=== PATIENT | female | born 1985 | race Caucasian/White ===

== ENCOUNTER 2016-05-26 06:32 | Inpatient (IN) | payer OTHER ==
--- NOTE | ~2016-05-26 | PN ---
Unit #: [id number] #: [id number] Patient: YAMILETH LESLIE [id number] [facility] [address] [place] [address] [id number] I MR#: [id number] NAME: YAMILETH LESLIE ROOM: P179 Age: 30 Sex: F Admission Date: 05/26/2016 : 1985 Attending Physician: Franki Townsend M.D. Admitting Physician: Franki Townsend M.D. Primary Care Physician: Generic Doctor Not In System [facility] PROGRESS NOTES DATE OF SERVICE: 05/27/2016 SUBJECTIVE Ms. Leslie is a 30-year-old white female with substance abuse and mood disorder, who was seen today and chart was reviewed, and case was discussed with the staff. She has been anxious, withdrawn, and rather seclusive to herself and appears to be in distress and discomfort and was not really able to carry on much conversation. Meanwhile, she has been taking medications and tolerating them fairly well with no reported side effects. MENTAL STATUS EXAMINATION Young white female who was casually dressed with fair personal hygiene, appears to be in slight distress or discomfort. She was awake and alert on interaction with intact orientation. Her mood was anxious with a congruent affect. She denies any suicidal or homicidal ideations. Her insight and judgment remain slightly impaired. TREATMENT PLAN 1. We will continue on her current medications and treatment protocol. We will monitor her response and make further adjustments as needed. 2. We will continue to follow up. Dictated by... Tiarra Gunn/florian TD: 05/28/2016 04:38 JOB #: [id number] [facility] PROGRESS NOTES X Franki Townsend MD PROGRESS NOTE
--- NOTE | ~2016-05-26 | PN ---
Unit #: [id number] #: [id number] Patient: YAMILETH LESLIE [id number] [facility] [address] [place] [address] [id number] I MR#: [id number] NAME: YAMILETH LESLIE ROOM: P179 Age: 30 Sex: F Admission Date: 05/26/2016 : 1985 Attending Physician: Franki Townsend M.D. Admitting Physician: Franki Townsend M.D. Primary Care Physician: Generic Doctor Not In System [facility] PROGRESS NOTES DATE OF SERVICE: 06/01/2016 SUBJECTIVE Ms. Ascencio is a 30-year-old white female with substance abuse and mood disorder, who was seen today and chart was reviewed, and the case was discussed with the staff. She had remained anxious, withdrawn, depressed and rather seclusive to herself. Meanwhile, she has been cooperative with the treatment recommendations and has been taking the medications and tolerating them fairly well with no reported side effects. MENTAL STATUS EXAMINATION Young white female, who was casually dressed with fair personal hygiene and appears to be in no acute distress or discomfort. She was awake and alert with intact orientation. Her mood was anxious with a congruent affect. She denies any suicidal or homicidal ideations. Her insight and judgment remain slightly impaired. TREATMENT PLAN We will continue her on her current treatment protocol. We will monitor her response and make further adjustments as needed. Dictated by... Tiarra Gunn/florian TD: 06/02/2016 00:42 JOB #: [id number] [facility] PROGRESS NOTES X Franki Townsend MD PROGRESS NOTE
--- NOTE | ~2016-05-26 | PN ---
Unit #: [id number] #: [id number] Patient: YAMILETH LESLIE [id number] [facility] [address] [place] [address] [id number] I MR#: [id number] NAME: YAMILETH LESLIE ROOM: P179 Age: 30 Sex: F Admission Date: 05/26/2016 : 1985 Attending Physician: Franki Townsend M.D. Admitting Physician: Franki Townsend M.D. Primary Care Physician: Generic Doctor Not In System [facility] PROGRESS NOTES DATE OF SERVICE: 06/02/2016 SUBJECTIVE The patient is a 30-year-old white female, who was seen today and chart was reviewed, and case was discussed with the staff. She has been anxious, withdrawn, though has not shown any agitation or irritability, and had been cooperative with treatment recommendations. Once again, she was seen to be rather seclusive to herself. Meanwhile, she has been taking the medications and tolerating them fairly well with no reported side effects. MENTAL STATUS EXAMINATION Young white female, who was casually dressed with fair personal hygiene, appears to be in no acute distress or discomfort. She was awake and alert on interaction with intact orientation. Her mood was anxious with a congruent affect. Her speech was slow and goal directed. She denies any suicidal or homicidal ideations, and also denies any auditory or visual hallucinations. Her insight and judgment remain slightly impaired. TREATMENT PLAN 1. We will continue her on her current medications and treatment protocol. We will monitor her response to the medications and make further adjustments as needed. 2. We will continue to follow up. Dictated by... Tiarra Gunn/florian TD: 06/04/2016 04:21 JOB #: [id number] Unit #: [id number] #: [id number] Patient: YAMILETH LESLIE [facility] PROGRESS NOTES X Franki Townsend MD PROGRESS NOTE
--- NOTE | ~2016-05-26 | PN ---
Unit #: [id number] #: [id number] Patient: YAMILETH LESLIE [id number] [facility] [address] [place] [address] [id number] I MR#: [id number] NAME: YAMILETH LESLIE ROOM: P179 Age: 30 Sex: F Admission Date: 05/26/2016 : 1985 Attending Physician: Franki Townsend M.D. Admitting Physician: Franki Townsend M.D. Primary Care Physician: Generic Doctor Not In System [facility] PROGRESS NOTES DATE 05/31/2016 DISCUSSION Ms. Leslie is a 30-year-old white female who was seen today and chart was reviewed and case was discussed with the staff. She has been anxious, withdrawn, depressed and seclusive to herself and reports not feeling good and has been describing feelings of hopelessness and helplessness and reports social support system outside. Meanwhile, she has been taking medications and tolerating them fairly well with no reported side effects. MENTAL STATUS EXAMINATION Young white female who was casually dressed with fair personal hygiene and appears to be in no acute distress or discomfort. She was awake and alert on interaction with intact orientation. Her mood was anxious and depressed with congruent affect. She reports suicidal ideation but denies any homicidal ideations. Her insight and judgement remains slightly impaired. TREATMENT PLAN 1. Will continue on current medications and treatment protocol and will monitor her response to the medications and make adjustments as needed. 2. Will continue to follow up. Dictated by... Tiarra Gunn/atiya TD: 06/01/2016 15:20 JOB #: [id number] Unit #: [id number] #: [id number] Patient: YAMILETH LESLIE [facility] PROGRESS NOTES X Franki Townsend MD PROGRESS NOTE
--- NOTE | ~2016-05-26 | PA ---
Unit #: [id number] #: [id number] Patient: Y[facility]ILE[facility] LESLIE [id number] [facility] [address] [place] [address] [id number] I MR#: [id number] NAME: YAMILETH LESLIE ROOM: P179 Age: 30 Sex: F Admission Date: 05/26/2016 : 1985 Date of Assessment: 05/26/2016 Attending Physician: Franki Townsend M.D. Admitting Physician: Franki Townsend M.D. Primary Care Physician: Generic Doctor Not In System PSYCHIATRIC ASSESSMENT DATE OF SERVICE 05/26/2016. IDENTIFYING DATA Ms. Tidwell is a 30-year-old single white female, who is a resident of [place], [place], and was referred to us from [facility]. CHIEF COMPLAINT "I'm very depressed." HISTORY OF PRESENT ILLNESS Ms. Tidwell is a 30-year-old white female, who was transferred to us from [facility], where she was brought in reporting increasing depression. On initial presentation, she was covered with a blanket pulled up to her chin in the position and was slow to respond and stated "I'm very depressed." When asked about what, she replied "everything, I want to ." She stated that she does not know why, but that she is very depressed and is homeless and that she is from [place], [place], and she does not have any family there and she stated that her mother has given them up and that she has siblings, but she does not have any specific support system and does report feelings of hopelessness and helplessness, poor support system, psychomotor retardation, and suicidal ideations and as such, a recommendation for inpatient level of care was made. SUBSTANCE ABUSE HISTORY The patient reports history of experimentation with alcohol, cocaine, and amphetamine in the past. She reports that she has not used any drugs at this time. PAST PSYCHIATRIC HISTORY The patient has had a history of inpatient psychiatric and chemical dependency treatment at [facility], and review of the medical records indicate that currently she is not active in any treatment program. PAST MEDICAL HISTORY No acute or chronic medical illnesses. PERSONAL AND SOCIAL HISTORY A 30-year-old white female, who reports that she is single, unemployed, and is homeless and has poor social support system. Unit #: [id number] #: [id number] Patient: YAMILETH LESLIE MENTAL STATUS EXAMINATION Young white female, who was casually dressed with fair personal hygiene, appears to be in no acute distress or discomfort. She was awake and alert on interaction with intact orientation. Her mood was anxious and depressed with a congruent affect. Her speech was slow and goal directed. She reports having suicidal ideation, but denies any homicidal ideations and also denies any auditory or visual hallucinations. Her insight and judgment remain slightly impaired. DIAGNOSTIC IMPRESSION Psychiatric: Major depressive disorder, recurrent, moderate, without psychotic features. Medical: None. Stressors: Moderate psychosocial stressors. TREATMENT PLAN 1. The patient has presented with a history of mood disorder and has been decompensating and will need inpatient hospitalization for safety and stabilization. We will start her back on her home medications and we will adjust the medications and monitor response. 2. Supportive therapy was provided to the patient. ESTIMATED LENGTH OF STAY 5 to 7 days. ABILITY TO HELP SELF Limited. WILLINGNESS TO HELP SELF The patient appears to be willing to help self. STRENGTHS 1. Communicative. 2. Cooperative. PROBLEMS 1. Chronic dysphoric symptoms. 2. Poor social support system. DISCHARGE CRITERIA This will be contingent upon the patient's ability to show resolution of her depression and anxiety and her ability to stay safe to herself, particularly after discharge from the hospital. Dictated by... Tiarra Gunn/florian TD: 05/26/2016 10:09 JOB #: [id number] Unit #: [id number] #: [id number] Patient: YAMILETH LESLIE RUI PSYCHIATRIC ASSESSMENT X Franki Townsend MD X PSYCHIATRIC ASSESSMENT
--- NOTE | ~2016-05-26 | PN ---
Unit #: [id number] #: [id number] Patient: YAMILETH LESLIE [id number] [facility] [address] [place] [address] [id number] I MR#: [id number] NAME: YAMILETH LESLIE ROOM: P179 Age: 30 Sex: F Admission Date: 05/26/2016 : 1985 Attending Physician: Franki Townsend M.D. Admitting Physician: Franki Townsend M.D. Primary Care Physician: Generic Doctor Not In System [facility] PROGRESS NOTES DATE OF SERVICE 05/28/2016 DISCUSSION Ms. Leslie is a 30-year-old white female with mood disorder and substance abuse who was seen today. Chart was reviewed and case was discussed with the staff. She has been anxious, withdrawn, depressed, and rather cooperative with treatment recommendations, and informed me that she is due for her Abilify, maintained on long-acting injectable antipsychotic. She was getting filled in [place] and does not know where she is registered or scheduled to receive her next injection. MENTAL STATUS EXAMINATION Young white female who is casually dressed with fair personal hygiene, appears to be in no acute distress or discomfort. The patient was awake and alert on interaction with intact orientation. Her mood is anxious and depressed with congruent affect. Her speech is slow and goal-directed. She denies any suicidal or homicidal ideations and also denies any auditory or visual hallucinations. Her insight and judgment remain slightly impaired. TREATMENT PLAN 1. We will continue her on her current medications and treatment protocol. We will monitor her response to the medications and make further adjustments as needed. 2. We will continue to follow up. Dictated by... Tiarra Gunn/jason TD: 05/29/2016 09:41 JOB #: [id number] Unit #: [id number] #: [id number] Patient: YAMILETH LESLIE PROGRESS NOTES X Franki Townsend MD PROGRESS NOTE
--- NOTE | ~2016-05-26 | HP ---
Unit #: [id number] #: [id number] Patient: YAMILETH ELSLIE [id number] [place] [address] [id number] I MR#: [id number] NAME: YAMILETH LESLIE ROOM: P179 Age: 30 Sex: F Admission Date: 05/26/2016 : 1985 Attending Physician: Franki Townsend M.D. Admitting Physician: Franki Townsend M.D. Primary Care Physician: Generic Doctor Not In System HISTORY AND PHYSICAL HISTORY OF PRESENT ILLNESS The patient is a 30-year-old female admitted to [facility] on 05/26/2016 for suicidal ideations and auditory hallucinations. PAST MEDICAL HISTORY [place]'s disease PAST SURGICAL HISTORY section SOCIAL HISTORY The patient is unemployed and homeless. She denies alcohol, tobacco and drug use. However, her tox screen was positive for cocaine and methamphetamines. FAMILY MEDICAL HISTORY Noncontributory. ALLERGIES No known drug allergies. CURRENT MEDICATIONS The patient is not on any home medications. REVIEW OF SYSTEMS CONSTITUTIONAL: No fever or chills. HEENT: Denies any sore throat, ear pain or runny nose. CARDIOVASCULAR: Denies chest pain, irregular heart rhythm or palpitations. CHEST: Denies shortness of breath or cough. No hemoptysis. GASTROINTESTINAL: Denies nausea, vomiting, diarrhea or chronic constipation. ENDOCRINE: Denies history of increased thirst or urination. No recent significant weight loss or gain. GENITOURINARY: Denies dysuria, frequency, or hematuria. SKIN: Denies any rashes. HEMATOLOGIC: Denies history of increased bleeding or bruising. MUSCULOSKELETAL: Denies any hot, swollen joints. No generalized muscle pain. NEUROLOGIC: Denies problems with vision or speech. No frequent, severe headaches. No numbness, tingling or weakness in any extremities. Denies loss of bladder or bowel control. PHYSICAL EXAM Unit #: [id number] #: [id number] Patient: YAMILETH LESLIE GENERAL: She is awake, alert and oriented in no acute distress. VITAL SIGNS: Temperature 98.4, heart rate 92, respiration 16, blood pressure 155/64. HEIGHT: 5'2". WEIGHT: 140 pounds. SKIN: Warm and dry without rash or lesion. HEENT: Normocephalic. TMs not viewed. Oral and nasal passages clear. Conjunctivae clear. PERRLA. EOMs intact. NECK: Supple without lymphadenopathy or thyromegaly. HEART: Regular rate and rhythm without murmur. LUNGS: Clear. ABDOMEN: Soft, nontender. : Not done. EXTREMITIES: No evidence of cyanosis, clubbing or edema. Moves all without focal deficit. NEUROLOGICAL: Grossly within normal limits. Cranial Nerves: II: Visual leone are intact. III, IV AND : Extraocular movements are intact. Pupils are equal, round and reactive to light. V: Facial sensation is grossly normal. VII: Facial movements and expression are normal. VIII: Auditory acuity grossly intact. IX, X: Uvula is midline. Phonation is normal. XI: Patient shrugs shoulders and turns head normally. XII: Tongue protrudes in the midline. Sensory and Motor Function: Sensory and motor sensation is grossly normal. Motor: moves all extremities well. IMPRESSION 1. Psychiatric admission. 2. [place]'s disease. RECOMMENDATIONS Psychiatric per psychiatrist. MEDICAL: No contraindication to participate in facility activities. MEDICAL PROGNOSIS Fair. MEDICAL CONDITION Stable. Dictated by... Fatmata Loera/ayse TD: 05/27/2016 03:49 JOB #: [id number] Unit #: [id number] #: [id number] Patient: YAMILETH LESLIE HISTORY AND PHYSICAL X BIANCA SIMS APRN X HISTORY AND PHYSICAL
--- NOTE | ~2016-05-26 | PN ---
Unit #: [id number] #: [id number] Patient: YAMILETH LESLIE [id number] [facility] [address] [place] [address] [id number] I MR#: [id number] NAME: YAMILETH LESLIE ROOM: P179 Age: 30 Sex: F Admission Date: 05/26/2016 : 1985 Attending Physician: Franki Townsend M.D. Admitting Physician: Franki Townsend M.D. Primary Care Physician: Generic Doctor Not In System [facility] PROGRESS NOTES DATE 05/30/2016 DISCUSSION Ms. Leslie is a 30-year-old white female with mood disorder who was seen today and chart was reviewed and case was discussed with the staff. She has been anxious, withdrawn, depressed and rather seclusive to herself and reports not feeling good and stated that she does not feel her medications are not working for her and reports increasing depressive symptoms. Meanwhile, she has been taking medications and tolerating them fairly well with no reported side effects. MENTAL STATUS EXAMINATION Young white female who was casually dressed with fair personal hygiene, appears to be in no acute distress or discomfort. She was awake and alert on interaction with intact orientation. Her mood was anxious and depressed with congruent affect. Her speech was slow and goal-directed. She reports having suicidal ideation but denies any homicidal ideations. Also, denies any auditory or visual hallucinations. Her insight and judgement remains slightly impaired. TREATMENT PLAN 1. We will continue her on her current medications and treatment protocol. We will monitor her response to the medications and make further adjustments as needed. 2. We will continue to follow up. Dictated by... Tiarra Gunn/ayse TD: 05/31/2016 01:58 JOB #: [id number] Unit #: [id number] #: [id number] Patient: YAMILETH LESLIE PROGRESS NOTES X Franki Townsend MD PROGRESS NOTE
--- NOTE | ~2016-05-26 | PN ---
Unit #: [id number] #: [id number] Patient: YAMILETH LESLIE [id number] [facility] [address] [place] [address] [id number] I MR#: [id number] NAME: YAMILETH LESLIE ROOM: P179 Age: 30 Sex: F Admission Date: 05/26/2016 : 1985 Attending Physician: Franki Townsend M.D. Admitting Physician: Franki Townsend M.D. Primary Care Physician: Generic Doctor Not In System [facility] PROGRESS NOTES DATE OF SERVICE: 05/29/2016 SUBJECTIVE Ms. Ascencio is a 30-year-old white female, who was seen today and chart was reviewed and the case was discussed with the staff. She has been anxious, withdrawn, and rather seclusive to herself. Meanwhile, she has been cooperative with the treatment recommendations and has been taking the medications and tolerating them fairly well. MENTAL STATUS EXAMINATION Young white female, who was casually dressed with fair personal hygiene and appears to be in no acute distress or discomfort. She was awake and alert on interaction with intact orientation. Her mood was anxious with a congruent affect. She denies any suicidal or homicidal ideations and also denies auditory or visual hallucinations. Her insight and judgment remain slightly impaired. TREATMENT PLAN 1. We will continue her on her current medications and treatment protocol. We will monitor her response to the medications and make further adjustments as needed. 2. We will continue to follow up. Dictated by... Tiarra Gunn/florian TD: 05/29/2016 09:01 JOB #: [id number] [facility] PROGRESS NOTES X Franki Twonsend MD PROGRESS NOTE
--- NOTE | ~2016-05-26 | DS ---
Unit #: [id number] #: [id number] Patient: YAMILETH LESLIE [id number] [facility] [address] [place] [address] [id number] I MR#: [id number] NAME: YAMILETH LESLIE ROOM: P179 Age: 30 Sex: F Admission Date: 05/26/2016 : 1985 Discharge Date: 06/03/2016 Attending Physician: Franki Townsend M.D. Primary Care Physician: Generic Doctor Not In System DISCHARGE SUMMARY IDENTIFYING DATA Ms. Leslie is a 30-year-old single white female, who is a resident of [place], [place] and was referred to us from [place], [place]. DISCHARGE DIAGNOSES Psychiatric: Major depressive disorder, recurrent, moderate, without psychotic features; alcohol abuse, moderate; cocaine abuse, moderate; amphetamine abuse, moderate. Medical: None. Stressors: Moderate psychosocial stressors. HISTORY OF PRESENT ILLNESS Please see initial psychiatric evaluation for details. PAST PSYCHIATRIC HISTORY Please see initial psychiatric evaluation for details. PAST MEDICAL HISTORY Please see initial psychiatric evaluation for details. HOSPITAL COURSE The patient [facility] and was oriented to the hospital environment. Routine p.r.n. medications were initiated, and she was started back on her home medications and medications were adjusted and she was closely monitored. She was taking the medications regularly and was tolerating them fairly well and was able to show a decent and therapeutic response and as such, it was decided that she will be discharged home and will continue treatment on an outpatient basis. DISCHARGE MEDICATIONS Lexapro 20 mg in the morning for depression, Zyprexa 2.5 mg at bedtime for depression, and Lamictal 50 mg at bedtime for depression. DISCHARGE CONDITION Stable. PROGNOSIS Fair. Dictated by... Franki Townsend M.D. Unit #: [id number] #: [id number] Patient: YAMILETH LESLIE IAA/modl TD: 06/03/2016 06:44 JOB #: [id number] DISCHARGE SUMMARY X Franki Townsend MD DISCHARGE SUMMARY
[~2016-05-26 06:32] MED LIST: DEPAKOTE PO; RISPERDAL1 M1 PO
[2016-05-27 13:10] LABS: ALBUMIN SERUM 3.5 g/dL (3.5-5.0); ALKALINE PHOSPHATASE 53 U/L (32-92); ALT (SGPT) 17 U/L (10-40); AST (SGOT) 16 U/L (10-42); BILIRUBIN,TOTAL 0.4 mg/dL (0.2-2.0); BLOOD UREA NITROGEN 14 mg/dL (9-23); CARBON DIOXIDE 27 mmol/L (22-31); CHLORIDE 109 mmol/L (100-111); GLOM FILT RATE Estimated ABOVE60 mL/min (>60); GLUCOSE FASTING 90 mg/dL (70-110); POTASSIUM 4.1 mmol/L (3.5-5.1); PROTEIN TOTAL SERUM 6.7 g/dL (6.0-8.3); SODIUM 144 mmol/L (135-145)
[2016-05-27 13:11] LABS: THYROID STIMULATING HORMONE 0.39 uIU/ml (0.34-5.60)
[2016-05-27 13:18] LABS: FREE THYROXIN (T4) 0.92 ng/dL (0.58-1.64)
[2016-05-28 09:59] LABS: URINE APPEARANCE TURBID; URINE BILIRUBIN NEG (NEG); URINE BLOOD NEG (NEG); URINE COLOR YELLOW; URINE GLUCOSE NEG (NEG); URINE KETONE NEG (NEG); URINE LEUKOCYTE ESTERASE NEG (NEG); URINE NITRATE NEG (NEG); URINE PH 5.5 (5-8); URINE PROTEIN NEG (NEG); URINE SPECIFIC GRAVITY 1.024 (1.003-1.035); URINE UROBILINOGEN 0.2 MG/DL (NEG)
== END 2016-06-03 11:55 | disposition home or self-care (01) | DRG 885 ==
LOC: P1E 06:32
PROVIDERS: Psychiatry & Neurology Psychiatry
DX: F33.1 Major depressive disorder, recurrent, moderate (principal); G10 Huntington's disease; Z56.0 Unemployment, unspecified; Z59.0 Homelessness; F14.10 Cocaine abuse, uncomplicated; F15.10 Other stimulant abuse, uncomplicated
CPT/HCPCS: 80053; 81003; 84439; 84443

== ENCOUNTER 2016-06-10 19:11 | Inpatient (IN) | payer OTHER ==
--- NOTE | ~2016-06-10 | PN ---
Unit #: [id number] #: [id number] Patient: YAMILETH LESLIE [id number] [facility] [address] [place] [address] [id number] I MR#: [id number] NAME: YAMILETH LESLIE ROOM: P177 Age: 30 Sex: F Admission Date: 06/10/2016 : 1985 Attending Physician: Franki Townsend M.D. Admitting Physician: Franki Townsend M.D. Primary Care Physician: Generic Doctor Not In System [facility] PROGRESS NOTES DATE OF SERVICE: 06/16/2016 SUBJECTIVE Ms. Leslie is a 30-year-old white female who was seen today and chart was reviewed and case was discussed with the staff. She has been anxious and withdrawn, though has not shown any agitation, irritability, or behavioral problems, and has been cooperative with treatment recommendations and has been taking the medications and tolerating them fairly well with no reported side effects. MENTAL STATUS EXAMINATION Young white female who was casually dressed with fair personal hygiene, appears to be in no acute distress or discomfort. She was awake and alert on interaction with intact orientation. Her mood was anxious with a congruent affect. She denies any suicidal or homicidal ideation. Her insight and judgment remain slightly impaired. TREATMENT PLAN 1. We will continue her on her current medications and treatment protocol. We will monitor her response to the medications and make further adjustments as needed. 2. We will continue to follow up. Dictated by... Tiarra Gunn/florian TD: 06/16/2016 13:23 JOB #: [id number] [facility] PROGRESS NOTES X Franki Townsend MD PROGRESS NOTE
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
--- NOTE | ~2016-06-10 | PN ---
Unit #: [id number] #: [id number] Patient: YAMILETH LESLIE [id number] [facility] [address] [place] [address] [id number] I MR#: [id number] NAME: YAMILETH LESLIE ROOM: P177 Age: 30 Sex: F Admission Date: 06/10/2016 : 1985 Attending Physician: Franki Townsend M.D. Admitting Physician: Franki Townsend M.D. Primary Care Physician: Generic Doctor Not In System [facility] PROGRESS NOTES DATE OF SERVICE: 06/15/2016 SUBJECTIVE Ms. Leslie is a 30-year-old white female, who was seen today and chart was reviewed and the case was discussed with the staff. She has been anxious and withdrawn, though has not shown any agitation or irritability and has been cooperative with the treatment recommendations and has been taking the medications and tolerating them fairly well with no reported side effects. MENTAL STATUS EXAMINATION Young white female, who was casually dressed with a fair personal hygiene, appears to be in no acute distress or discomfort. She was awake and alert on interaction with intact orientation. Her mood was anxious with a congruent affect. Her speech was slow and goal directed. She denies any suicidal or homicidal ideation. Her insight and judgment remain slightly impaired. TREATMENT PLAN 1. We will continue her on her current medications and treatment protocol. We will monitor her response to the medications and make further adjustments as needed. 2. We will continue to follow up. Dictated by... Tiarra Gunn/florian TD: 06/15/2016 17:05 JOB #: [id number] [facility] PROGRESS NOTES X Franki Townsend MD PROGRESS NOTE
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
--- NOTE | ~2016-06-10 | DS ---
Unit #: [id number] #: [id number] Patient: YAMILETH LESLIE [id number] [facility] [address] [place] [address] [id number] MR#: [id number] NAME: YAMILETH LESLIE ROOM: P177 Age: 30 Sex: F Admission Date: 06/10/2016 : 1985 Discharge Date: 06/17/2016 Attending Physician: Franki Townsend M.D. Primary Care Physician: Generic Doctor Not In System DISCHARGE SUMMARY IDENTIFYING DATA Ms. Leslie is a 30-year-old white female, who is a resident of [place], [place], and is known to us from previous encounter, was self-referred to the hospital. DISCHARGE DIAGNOSES Psychiatric: Major depressive disorder, recurrent, moderate, without psychotic features. Medical: None. Stressors: Moderate psychosocial stressors. HISTORY OF PRESENT ILLNESS Please see initial psychiatric evaluation for details. PAST PSYCHIATRIC HISTORY Please see initial psychiatric evaluation for details. PAST MEDICAL HISTORY Please see initial psychiatric evaluation for details. HOSPITAL COURSE The patient was admitted to the adult psychiatric unit at [facility] and was oriented to the hospital environment. Routine p.r.n. medications were initiated, and she was started back on her home medications and medications were adjusted and she was closely monitored. She was taking the medications regularly and was tolerating them fairly well and was able to show a decent and therapeutic response and as such, it was decided that she will be discharged home and will continue treatment on an outpatient basis. DISCHARGE MEDICATIONS Risperdal 0.5 mg b.i.d. for mood disorder and Prozac 20 mg a day for depression. DISCHARGE CONDITION Stable. PROGNOSIS Fair. Dictated by... Franki Townsend M.D. Unit #: [id number] #: [id number] Patient: YAMILETH LESLIE IAA/modl TD: 06/17/2016 07:38 JOB #: [id number] DISCHARGE SUMMARY X Franki Townsend MD DISCHARGE SUMMARY
--- NOTE | ~2016-06-10 | PN ---
Unit #: [id number] #: [id number] Patient: YAMILETH LESLIE [id number] [facility] [address] [place] [address] [id number] I MR#: [id number] NAME: YAMILETH LESLIE ROOM: P177 Age: 30 Sex: F Admission Date: 06/10/2016 : 1985 Attending Physician: Franki Townsend M.D. Admitting Physician: Franki Townsend M.D. Primary Care Physician: Generic Doctor Not In System [facility] PROGRESS NOTES DATE OF SERVICE 06/13/2016 DISCUSSION Ms. Leslie is a 30-year-old white female who was seen today. Chart was reviewed and case was discussed with staff. She has been anxious and withdrawn though has not shown any agitation or irritability and has been calm and cooperative with treatment recommendations. She has been taking the medications and tolerating them fairly well with no reported side effects. MENTAL STATUS EXAMINATION Young white female who is casually dressed with fair personal hygiene, appears to be in no acute distress or discomfort. She was awake and alert on interaction with intact orientation. Her mood is anxious with congruent affect. She denies any suicidal or homicidal ideation. Her insight and judgment remain slightly impaired. TREATMENT PLAN 1. We will continue her on her current medications and treatment protocol. We will monitor her response and add Risperdal as a mood stabilizer. 2. We will continue to follow up. Dictated by... Tiarra Gunn/jackieg TD: 06/14/2016 09:01 JOB #: [id number] [facility] PROGRESS NOTES X Franki Townsend MD PROGRESS NOTE
--- NOTE | ~2016-06-10 | HP ---
Unit #: [id number] #: [id number] Patient: YAMILETH LESLIE [id number] [place] [address] [id number] I MR#: [id number] NAME: YAMILETH LESLIE ROOM: P177 Age: 30 Sex: F Admission Date: 06/10/2016 : 1985 Attending Physician: Franki Townsend M.D. Admitting Physician: Franki Townsend M.D. Primary Care Physician: Generic Doctor Not In System HISTORY AND PHYSICAL HISTORY OF PRESENT ILLNESS Yamileth is a 30 year old admitted to [facility] with depression and verbalizing wanting to hurt herself. She has had other admissions to this facility for treatment of the same. She also has a history of alcohol abuse. PAST MEDICAL HISTORY 1. History of alcohol abuse 2. History of bipolar disorder with numerous suicide attempts PAST SURGICAL HISTORY Nothing reported. ALLERGIES No known drug allergies. SOCIAL HISTORY She does not smoke. Has a history of alcohol abuse and admits to illicit drug use to include amphetamines and cocaine. FAMILY HISTORY The patient reports during this admission that her mother has Bandar's and is in a custodial. She has never revealed this to us on in reviewing her. [facility] she likewise never mentioned that as family history. She further tell me that she knows she has Coryell's even though she has been diagnosed and talking with nursing staff she has gone so far as tell the nursing staff that she was recently told that she has a spot on her lungs and knows that she has lung cancer (?). REVIEW OF SYSTEMS CONSTITUTIONAL: No fever or chills. HEENT: Denies any sore throat, ear pain or runny nose. CARDIOVASCULAR: Denies chest pain, irregular heart rhythm or palpitations. CHEST: Denies shortness of breath or cough. No hemoptysis. GASTROINTESTINAL: Denies nausea, vomiting, diarrhea or chronic constipation. ENDOCRINE: Denies history of increased thirst or urination. No recent significant weight loss or gain. GENITOURINARY: Denies dysuria, frequency, or hematuria. SKIN: Denies any rashes. HEMATOLOGIC: Denies history of increased bleeding or bruising. Unit #: [id number] #: [id number] Patient: YAMILETH LESLIE MUSCULOSKELETAL: Denies any hot, swollen joints. No generalized muscle pain. NEUROLOGIC: Denies problems with vision or speech. No frequent, severe headaches. No numbness, tingling or weakness in any extremities. Denies loss of bladder or bowel control. CURRENT MEDICATIONS 1. Celexa 20 mg daily 2. Desyrel 100 mg q.h.s. p.r.n. 3. Milk of Magnesia p.r.n. 4. Maalox p.r.n. 5. Tylenol p.r.n. PHYSICAL EXAMINATION GENERAL: Alert, obese, in no apparent distress. VITAL SIGNS: Blood pressure 114/70, heart rate 80, respirations 16, temperature 98.6. WEIGHT: 150 pounds. HEIGHT: 5'2". SKIN: Warm and dry without rash or lesion. HEENT: Normocephalic. TMs not viewed. Oral and nasal passages clear. Conjunctivae clear. Pupils equal, round and reactive to light and accommodation. Extraocular movements intact. NECK: Supple without lymphadenopathy or thyromegaly. HEART: Regular rate and rhythm without murmur. LUNGS: Clear. ABDOMEN: Soft, nontender. : Not done. EXTREMITIES: No evidence of cyanosis, clubbing or edema. Moves all extremities without focal deficit. NEUROLOGICAL: Grossly within normal limits. Cranial Nerves: II: Visual leone are intact. III, IV AND : Extraocular movements are intact. Pupils are equal, round and reactive to light. V: Facial sensation is grossly normal. VII: Facial movements and expression are normal. VIII: Auditory acuity grossly intact. IX, X: Uvula is midline. Phonation is normal. XI: Patient shrugs shoulders and turns head normally. XII: Tongue protrudes in the midline. Sensory and Motor Function: Sensory and motor sensation is grossly normal. Motor: moves all extremities well. Coordination: Gait is normal. Deep Tendon Reflexes: Intact. She has no noted on exam. IMPRESSION 1. Psychiatric admission 2. History of polysubstance abuse RECOMMENDATIONS PSYCHIATRIC: Per psychiatrist. MEDICAL: 1. I see no contraindications to participating in facility's activities. 2. I have asked the patient to let us know where her medical records would be that would help substantiate herself diagnosed condition of Bandar's and lung cancer. If there are records available I would like to see them. Unit #: [id number] #: [id number] Patient: YAMILETH LESLIE MEDICAL PROGNOSIS Good. MEDICAL CONDITION Stable. Dictated by... Dinah Garnica P.A.-C. for Tiarra Irene/ayse TD: 06/12/2016 00:22 JOB #: [id number] HISTORY AND PHYSICAL X Dinah Garnica X HISTORY AND PHYSICAL
--- NOTE | ~2016-06-10 | PN ---
Unit #: [id number] #: [id number] Patient: YAMILETH LESLIE [id number] [facility] [address] [place] [address] [id number] I MR#: [id number] NAME: YAMILETH LESLIE ROOM: P177 Age: 30 Sex: F Admission Date: 06/10/2016 : 1985 Attending Physician: Franki Townsend M.D. Admitting Physician: Franki Townsend M.D. Primary Care Physician: Generic Doctor Not In System [facility] PROGRESS NOTES DATE OF SERVICE: 06/14/2016 SUBJECTIVE Ms. Leslie is a 30-year-old white female, who was seen today and chart was reviewed, and case was discussed with the staff. She has been anxious with persistent depression, anxiety, irritability, and mood swing . MENTAL STATUS EXAMINATION Young white female, who was casually dressed with fair personal hygiene, appears to be in no acute distress or discomfort. She was awake and alert on interaction with intact orientation. Her mood was anxious with a congruent affect. She denies any suicidal or homicidal ideations. Her insight and judgment remain slightly impaired. TREATMENT PLAN 1. We will continue her on her current medications and treatment protocol. We will monitor her response to the medications and make further adjustments as needed. 2. We will continue to follow up. Dictated by... Tiarra Gunn/florian TD: 06/14/2016 09:08 JOB #: [id number] [facility] PROGRESS NOTES X Franki Townsend MD PROGRESS NOTE
[2016-06-11 09:33] LABS: BASOPHIL% 0.8 % (0-2.5); EOSINOPHIL# 0.2 X10e3 (0-0.7); EOSINOPHIL% 3.5 % (0.0-7.0); HEMATOCRIT 37.6 % (35.0-45.0); HEMOGLOBIN 12.6 gm/dL (12.0-16.0); LYMPHOCYTE# 2.1 X10e3 (1.0-3.5); LYMPHOCYTE% 34.9 % (17.0-45.0); MEAN CELL VOLUME 86.3 FL (83-96); MEAN CORPUSCULAR HEMOGLOBIN 28.9 PG (28-34); MEAN CORPUSCULAR HGB CONC 33.5 g/dL (30-36); MEAN PLATELET VOLUME 8.8 FL (6.5-11.5); MONOCYTE# 0.7 X10e3 (0-1.0); MONOCYTE% 11.1 % (3.0-12.0); NEUTROPHIL# 2.9 X10e3 (1.5-7.1); NEUTROPHIL% 49.7 % (40-75); PLATELET COUNT 182 X10e3 (140-420); RED BLOOD COUNT 4.35 X10e (3.90-5.30); RED CELL DISTRIBUTION WIDTH 13.6 % (11.0-15.5); WHITE BLOOD COUNT 5.9 X10e3 (4.0-10.5)
[2016-06-11 09:39] LABS: DIFF IND NO
[2016-06-11 10:04] LABS: THYROID STIMULATING HORMONE 1.73 uIU/ml (0.34-5.60)
[2016-06-11 10:15] LABS: FREE THYROXIN (T4) 0.78 ng/dL (0.58-1.64)
[2016-06-11 10:16] LABS: ALKALINE PHOSPHATASE 50 U/L (32-92); ALT (SGPT) 26 U/L (10-40); AST (SGOT) 21 U/L (10-42); BILIRUBIN,TOTAL 0.5 mg/dL (0.2-2.0); BLOOD UREA NITROGEN 17 mg/dL (9-23); BUN/CREATININE RATIO 24.28; CALCIUM SERUM 9.2 mg/dL (8.4-10.2); CARBON DIOXIDE 25 mmol/L (22-31); CHLORIDE 102 mmol/L (100-111); CREATININE SERUM 0.7 mg/dL (0.6-1.4); GLOM FILT RATE Estimated ABOVE60 mL/min (>60); GLUCOSE FASTING 87 mg/dL (70-110); POTASSIUM 4.1 mmol/L (3.5-5.1); PROTEIN TOTAL SERUM 6.9 g/dL (6.0-8.3); SODIUM 137 mmol/L (135-145)
== END 2016-06-17 16:25 | disposition home or self-care (01) | DRG 885 ==
LOC: P1E 19:11 → POF 06-11 12:44 → P1E 06-11 12:47
PROVIDERS: Psychiatry & Neurology Psychiatry
DX: F33.1 Major depressive disorder, recurrent, moderate (principal); G10 Huntington's disease
CPT/HCPCS: 80053; 84439; 84443; 84703; 85025